=== PATIENT | male | born 1945 | race African-American/Black ===

== ENCOUNTER → 2017-02-24 | Outpatient (CLI) | payer MEDICARE | END | disposition home or self-care (01) | LOC: PCVCCLINIC 11:52 | PROVIDERS: ATTEND Internal Medicine Cardiovascular Disease | DX: I73.9 Peripheral vascular disease, unspecified (principal); I25.10 Atherosclerotic heart disease of native coronary artery without angina pectoris; E78.00 Pure hypercholesterolemia, unspecified; I71.4 Abdominal aortic aneurysm, without rupture; I10 Essential (primary) hypertension; Z88.8 Allergy status to other drugs, medicaments and biological substances; Z91.013 Allergy to seafood; Z79.899 Other long term (current) drug therapy | CPT/HCPCS: 36415; 80061; 93005; G0463 ==

== ENCOUNTER → 2017-04-05 | Outpatient (CLI) | payer MEDICARE ==
[~2017-04-05] MED LIST: DIAZEPAM 10 MG TABLET. ONE; FAMOTIDINE 20 MG/2 ML VIAL ONE; HEPARIN for ARTERIAL LINE 1,500 ML ONE; IOHEXOL 300 MG/ML 100ML VIAL. ONE; IOHEXOL 350 MG/ML 100 ML VIAL. ONE; IV NORMAL SALINE 1000ML BAG 1,000 ML ONE; LIDOCAINE 1% Multi-Dose 20 ML VIAL. ONE; MIDAZOLAM HCL/PF 2 MG/2 ML VIAL. ONE; diphenhydrAMINE 50 MG/ML VIAL ONE; fentaNYL PF VIAL 100 MCG/2 ML VIAL ONE; methylPREDNISolone SOD SUCC PF 125 MG/2 ML VIAL. ONE
--- NOTE | 2017-04-05 12:34 | PCVCINTER ---
EXAM: 1. AORTOGRAM AND BILATERAL ILIOFEMORAL ANGIOGRAPHY 2. BILATERAL RENAL ANGIOGRAPHY 3. THORACIC AORTOGRAM INDICATION: Peripheral arterial disease. Coronary artery disease. Thoracoabdominal aneurysms. Hypertension. Renal atherosclerosis. PROCEDURE: Procedure and risks of angiography intervention is appropriate including limb loss stroke and were discussed with the patient's family and consent obtained. The patient's right groin was prepped abnormal sterile fashion. IV conscious sedation was used to procedure with appropriate monitoring for 60 minutes. Ultrasound was used to interrogate the right groin and showed the right common femoral artery to be patent. A permanent spot film was obtained. Under ultrasound guidance access into the right common femoral artery was obtained and a 6 Afghan sheath was placed. Through this a 5 Afghan flush catheter was placed into the descending thoracic aorta and thoracic aortogram was obtained. Catheter was positioned into the upper abdominal aorta and AP aortogram was performed. Catheter was positioned at the aortic bifurcation and bilateral iliofemoral angiography performed. Catheter was exchanged for a visceral catheter was placed into the right renal arteries and right renal angiograms obtained. Catheter was placed into the the left renal arteries and left renal angiograms were obtained. Dr. Salguero joined the procedure and he performed coronary angiography. Please see his separate dictation for full details. Catheters and wires removed. Sheath was removed and hemostasis obtained using the Mynx device. No immediate complications. FINDINGS: Thoracic aortogram: Ectasia of the ascending thoracic aorta. The origins of the great vessels are patent. Aneurysmal dilatation of the proximal descending thoracic aorta. The mid descending thoracic aorta is more normal in caliber. Fusiform aneurysmal dilatation of the distal descending thoracic aorta. Further evaluation using CT angiography of the thoracic aorta would be suggested to obtain accurate outer diameter measurements. Abdominal Aortogram: Fusiform aneurysmal dilatation of the suprarenal abdominal aorta. Please see recent CT angiography showing a 6.6 cm suprarenal aortic aneurysm. Note is made of one left and 2 right renal arteries. Right upper renal artery: Mild plaque proximal vessel does not cause significant stenosis. No branch vessel stenosis. Right lower renal artery: Mild plaque proximal vessel does not cause significant stenosis. No branch vessel stenosis. Left renal artery: Minimal plaque proximal vessel does not cause significant stenosis. No branch vessel stenosis. Bilateral iliofemoral angiography: Chronic occlusion of the left common iliac artery. Stent is present from the distal aorta across the right common iliac artery and shows good patency. The right internal and external iliac arteries are widely patent. Postsurgical changes of right to left femoral-femoral bypass graft showing adequate patency. The left external iliac artery fills in a retrograde fashion to provide some supply into the left internal iliac artery. The right and left common femoral artery show good patency. The right and left profunda femoral arteries and visualized portions of the upper superficial femoral arteries are patent. IMPRESSION: Descending thoracic and suprarenal abdominal aortic aneurysms as reviewed above. Correlation with CT angiography is suggested. Right to left femoral-femoral bypass graft maintaining satisfactory patency. 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 follow up LOC:[id number]
== END | disposition home or self-care (01) ==
LOC: PCVCINTER 08:24
PROVIDERS: ATTEND Internal Medicine Cardiovascular Disease
DX: I73.9 Peripheral vascular disease, unspecified (principal); I25.10 Atherosclerotic heart disease of native coronary artery without angina pectoris; I70.1 Atherosclerosis of renal artery; I10 Essential (primary) hypertension
CPT/HCPCS: 36252; 75605; 75630; 76937; 93458; 99152; 99153; C1751; C1760; C1769; C1894; J1200; J1644; J2250; J2930; J3010; J7030; Q9967; S0028; J0690

== ENCOUNTER → 2017-05-18 | Outpatient (CLI) | payer MEDICARE | END | disposition home or self-care (01) | LOC: PCVCCLINIC 11:37 | PROVIDERS: ATTEND Internal Medicine Cardiovascular Disease | DX: I25.10 Atherosclerotic heart disease of native coronary artery without angina pectoris (principal); I10 Essential (primary) hypertension; E78.00 Pure hypercholesterolemia, unspecified; I73.9 Peripheral vascular disease, unspecified; I71.2 Thoracic aortic aneurysm, without rupture; Z79.82 Long term (current) use of aspirin; Z79.899 Other long term (current) drug therapy | CPT/HCPCS: 93005; G0463 ==

== ENCOUNTER → 2017-09-06 | Outpatient (CLI) | payer MEDICARE | END | disposition home or self-care (01) | LOC: PCVCCLINIC 10:35 | PROVIDERS: ATTEND Internal Medicine Cardiovascular Disease | DX: I25.10 Atherosclerotic heart disease of native coronary artery without angina pectoris (principal); I10 Essential (primary) hypertension; I73.9 Peripheral vascular disease, unspecified; E78.00 Pure hypercholesterolemia, unspecified; I71.2 Thoracic aortic aneurysm, without rupture; I71.4 Abdominal aortic aneurysm, without rupture; Z79.82 Long term (current) use of aspirin; Z79.899 Other long term (current) drug therapy | CPT/HCPCS: 80061; 93005; G0463 ==

== ENCOUNTER → 2018-01-05 | Outpatient (CLI) | payer MEDICARE | END | disposition home or self-care (01) | LOC: PCVCCLINIC 16:14 | DX: I25.10 Atherosclerotic heart disease of native coronary artery without angina pectoris (principal); E78.5 Hyperlipidemia, unspecified; I10 Essential (primary) hypertension; I73.9 Peripheral vascular disease, unspecified; R94.31 Abnormal electrocardiogram [ECG] [EKG]; Z98.890 Other specified postprocedural states; Z86.79 Personal history of other diseases of the circulatory system; Z79.899 Other long term (current) drug therapy | CPT/HCPCS: 80061; 93005; G0463 ==

== ENCOUNTER → 2018-01-19 | Outpatient (CLI) | payer MEDICARE | END | disposition home or self-care (01) | LOC: PCVCIMAG 12:52 | DX: I71.4 Abdominal aortic aneurysm, without rupture (principal); I73.9 Peripheral vascular disease, unspecified | CPT/HCPCS: 93978 ==

== ENCOUNTER → 2018-08-07 | Outpatient (CLI) | payer MEDICARE | END | disposition home or self-care (01) | LOC: PCVCCLINIC 15:03 | PROVIDERS: ATTEND Internal Medicine Cardiovascular Disease | DX: I25.10 Atherosclerotic heart disease of native coronary artery without angina pectoris (principal); I71.4 Abdominal aortic aneurysm, without rupture; I71.2 Thoracic aortic aneurysm, without rupture; I10 Essential (primary) hypertension; I73.9 Peripheral vascular disease, unspecified; E78.00 Pure hypercholesterolemia, unspecified; R94.31 Abnormal electrocardiogram [ECG] [EKG]; Z98.890 Other specified postprocedural states; Z86.79 Personal history of other diseases of the circulatory system; Z79.899 Other long term (current) drug therapy; Z79.82 Long term (current) use of aspirin; Z91.013 Allergy to seafood | CPT/HCPCS: 80061; 93005; G0463 ==

== ENCOUNTER → 2019-03-08 | Outpatient (CLI) | payer MEDICARE ==
--- NOTE | 2019-03-08 13:01 | PCVCIMAG ---
EXAM: AORTOILIAC DUPLEX INDICATION: Peripheral arterial disease FINDINGS: AORTA: Suprarenal aorta measures maximum diameter of 3.8 cm. Previous surgical repair of the infrarenal abdominal aorta. The infrarenal aorta measures maximum diameter of 3.0 cm. No aortic stenosis. RIGHT COMMON ILIAC ARTERY: Maximum diameter is 1.3 cm. No significant stenosis. RIGHT EXTERNAL ILIAC ARTERY: No significant stenosis. LEFT COMMON ILIAC ARTERY: Maximum diameter is 1.3 cm. Chronic occlusion. LEFT EXTERNAL ILIAC ARTERY: Chronic occlusion. IMPRESSION: Intact surgical repair infrarenal abdominal aorta with maximum diameter measuring 3.0 cm. Right to left femoral-femoral artery bypass graft maintaining adequate patency with unchanged velocity elevations at both anastomoses. Unchanged occlusion of the comanche left common and external iliac arteries. LOC:[id number]
--- NOTE | 2019-03-08 13:10 | PCVCIMAG ---
APPROVED REPORT Study performed: 03/08/2019 10:06:12 EXAM: Comprehensive 2D, Doppler, and color-flow Echocardiogram Patient Location: Echo lab Status: routine BSA: 1.99 HR: 59 bpmBP: 120/80 mmHg Rhythm: NSR Other Information Study Quality: Good Risk Factors: Cardiac Risk Factors: HTN Indications CAD AAA, Thoracic aortic aneurysm, PAD, PVD 2D Dimensions IVSd: 13.53 (7-11mm)LVOT Diam: 21.64 (18-24mm) LVDd: 41.69 mm PWd: 11.05 (7-11mm)Ascending Ao: 42.60 (22-36mm) LVDs: 27.66 (25-40mm) Left Atrium: 37.24 (27-40mm) Aortic Root: 33.95 mm LV Single Plane 4CH: 46.42 % LV Single Plane 2CH: 55.38 % Biplane EF: 51.5 % Volumes Left Atrial Volume (Systole) Single Plane 4CH: 58.16 mLSingle Plane 2CH: 69.11 mL LA ESV Index: 34.00 mL/m2 Aortic Valve AoV Peak Leonel.: 1.41 m/s AO Peak Gr.: 7.95 mmHgLVOT Max P.41 mmHg LVOT Max V: 0.92 m/s DEMETRI Vmax: 2.41 cm2 Mitral Valve E/A Ratio: 0.8 MV Decel. Time: 152.41 ms MV E Max Leonel.: 0.66 m/s MV A Leonel.: 0.80 m/s TDI E/Lateral E': 8.25E/Medial E': 8.25 Medial E' Leonel.: 0.08 m/s Lateral E' Leonel.: 0.08 m/s Pulmonary Valve PV Peak Gr.: 1.82 mmHg Pulmonary Vein P Vein S: 0.68 m/sP Vein A: 0.50 m/s P Vein D: 0.31 m/sP Vein A Dur.: 96.9 msec P Vein S/D Ratio: 2.19 Tricuspid Valve TR Peak Leonel.: 2.61 m/s TR Peak Gr.: 27.27 mmHg Left Ventricle The left ventricle is normal size. There is normal LV segmental wall motion. There is normal left ventricular wall thickness. Left ventricular systolic function is normal. The left ventricular ejection fraction is within the normal range. LVEF is 55-60%. The left ventricular diastolic function is normal. Right Ventricle The right ventricle is normal size. The right ventricular systolic function is normal. Atria The left atrium size is normal. The right atrium size is normal. Aortic Valve The aortic valve is normal in structure. No aortic regurgitation is present. There is no aortic valvular stenosis. Mitral Valve The mitral valve is normal in structure. Mild mitral regurgitation. No evidence of mitral valve stenosis. Tricuspid Valve The tricuspid valve is normal in structure. Mild tricuspid regurgitation. Pulmonary artery pressure is 34mmHg. Pulmonic Valve The pulmonary valve is normal in structure. There is no pulmonic valvular regurgitation. Great Vessels The aortic root is normal in size. The ascending aorta is dilated measuring 4.3cm. IVC is normal in size and collapses >50% with inspiration. Pericardium There is no pericardial effusion. <Conclusion> The left ventricle is normal size. LVEF is 55-60%. The right ventricle is normal size. The left atrium size is normal. The aortic valve is normal in structure. Mild mitral regurgitation. Mild tricuspid regurgitation. Pulmonary artery pressure is 34mmHg. The aortic root is normal in size. There is no pericardial effusion.
== END | disposition home or self-care (01) ==
LOC: PCVCIMAG 08:57
PROVIDERS: ATTEND Internal Medicine Cardiovascular Disease
DX: I08.1 Rheumatic disorders of both mitral and tricuspid valves (principal); I25.10 Atherosclerotic heart disease of native coronary artery without angina pectoris; I73.9 Peripheral vascular disease, unspecified; E78.00 Pure hypercholesterolemia, unspecified; I10 Essential (primary) hypertension; I71.4 Abdominal aortic aneurysm, without rupture; I71.2 Thoracic aortic aneurysm, without rupture; Z95.828 Presence of other vascular implants and grafts; Z98.890 Other specified postprocedural states; Z86.79 Personal history of other diseases of the circulatory system; Z79.82 Long term (current) use of aspirin
CPT/HCPCS: 36415; 80061; 93005; 93306; 93978; G0463